=== PATIENT | female | born 1955 | race Caucasian/White ===

== ENCOUNTER 2019-06-22 20:21 | Emergency (ER) | payer OTHER ==
[2019-06-22 20:40] VITALS: BP 141/81; PULSE 76; TEMP 98.1; BMI 32.1
--- NOTE | 2019-06-22 22:50 | PDOC ---
History of Present Illness - General Chief Complaint: Pain Stated Complaint: RIGHT SIDE PAIN/HEAD PAIN Time Seen by Provider: 06/22/19 20:54 - History of Present Illness Initial Comments: 06/22/19 22:49 64-year-old female with a past medical history of coronary artery disease DVT hypertension on Eliquis presents for evaluation of right-sided rib pain. She states about 6 days ago she went to lift a TV felt the sudden onset of right- sided pain and has been in pain ever since. Past History - Past Medical History Allergies/Adverse Reactions: Allergies Allergy/AdvReac Type Severity Reaction Status Date / Time Penicillins Allergy Verified 06/22/19 20:27 Cardiac Disorders: Yes (Afib) COPD: No CHF: Yes GI Disorders: Yes (GERD, IBS,) Other medical history: Spinal stenosis, degenerative disc dx, - Surgical History GI Surgery: Yes (Hernia Repair, A/P,Gastric bypass,cholecystectomy) - Psycho Social/Smoking Cessation Hx Smoking History: Former smoker Have you smoked in the past 12 months: No If you are a former smoker, when did you quit?: 2007 Information on smoking cessation initiated: No Hx Alcohol Use: Yes ("social") Drug/Substance Use Hx: No Review of Systems - Review of Systems Respiratory: Yes: See HPI *Physical Exam - Vital Signs Last Vital Signs Temp Pulse Resp BP Pulse Ox 98.1 F 76 20 141/81 98 06/22/19 20:28 06/22/19 20:28 06/22/19 20:28 06/22/19 20:28 06/22/19 20:28 - Physical Exam Comments: 06/22/19 22:49 GENERAL: The patient is awake, alert, and fully oriented, in no acute distress. HEAD: Normal with no signs of trauma. EYES: sclera anicteric, conjunctiva clear. ENT: Ears normal NECK: Normal range of motion LUNGS: No wheezes rhonchi or rales decreased breath sounds at the right base. HEART: S1 and S2 without murmur, rub or gallop. ABDOMEN: Soft, nontender, normoactive bowel sounds. No guarding, no rebound. No masses. EXTREMITIES: Normal range of motion, no edema. No clubbing or cyanosis. No cords, erythema, or tenderness. NEUROLOGICAL: Cranial nerves II through XII grossly intact. Normal speech, normal gait. PSYCH: Normal mood, normal affect. SKIN: Warm, Dry, normal turgor, no rashes or lesions noted. ED Treatment Course - RADIOLOGY Radiology Studies Ordered: Category Date Time Status CHEST CT WITHOUT CONTRAST [CT] Stat CT Scan 06/22/19 21:19 Taken CHEST - PA [RAD] Stat Radiology 06/22/19 20:54 Taken RIBS RIGHT SIDE [RAD] Stat Radiology 06/22/19 20:54 Taken - Medications Given in the ED: ED Medications Discontinued Medications Generic Name Dose Route Start Last Admin Trade Name Freq PRN Reason Stop Dose Admin Oxycodone/Acetaminophen 2 combo 06/22/19 21:21 06/22/19 21:35 Percocet 5/325 - PO 06/22/19 21:22 2 combo ONCE ONE Administration Medical Decision Making - Medical Decision Making 06/22/19 22:50 There are rib fractures at ribs 9 and 10 on the right and a pleural effusion as well. No pneumothorax CAT scan was ordered to evaluate for hemothorax 06/22/19 22:50 This patient will be signed out to the main emergency room at this point Discharge - Discharge Information Problems reviewed: Yes Clinical Impression/Diagnosis: Rib fractures - Follow up/Referral Referrals: ON STAFF,NOT [Primary Care Provider] - - Patient Discharge Instructions - Post Discharge Activity
--- NOTE | 2019-06-22 23:49 | PDOC ---
*Physical Exam - Vital Signs Last Vital Signs Temp Pulse Resp BP Pulse Ox 98.1 F 76 20 141/81 98 06/22/19 20:28 06/22/19 20:28 06/22/19 20:28 06/22/19 20:28 06/22/19 20:28 - Physical Exam Comments: 06/22/19 23:41 The patient was examined by [XANDER Membreno] under my direct supervision. I personally evaluated the patient. I concur with the above findings and the plan of care. Patient is a 64-year-old female with history of DVT on Eliquis who presents with severe pleuritic right-sided rib cage pain for the past 5 days. Patient's chest and rib cage series x-rays revealed minimally displaced fractures of ninth and 10th ribs with a small right pleural effusion. CT revealed presence of small hemithorax. Patient is hemodynamically stable. Given the findings and presence of anticoagulation, patient has been advised of the need for admission and observation. Due to familial circumstances, she is unable to be admitted at this time. I have discussed with the patient and her friend in detail the risk associated with continued bleeding, increased hemathorax. Superimposed infection, respiratory compromise and even . They have expressed understanding. Patient will sign AGAINST MEDICAL ADVICE and will return in 12 hours for a repeat evaluation. ED Treatment Course - Medications Given in the ED: ED Medications Discontinued Medications Generic Name Dose Route Start Last Admin Trade Name Freq PRN Reason Stop Dose Admin Oxycodone/Acetaminophen 2 combo 06/22/19 21:21 06/22/19 21:35 Percocet 5/325 - PO 06/22/19 21:22 2 combo ONCE ONE Administration Discharge - Discharge Information Problems reviewed: Yes Clinical Impression/Diagnosis: Hemothorax Rib fractures Qualifiers: Encounter type: initial encounter Rib fracture type: multiple ribs Fracture type: closed Laterality: right Qualified Code(s): S22.41XA - Multiple fractures of ribs, right side, initial encounter for closed fracture Condition: Fair Disposition: AGAINST MEDICAL ADVICE - Admission No - Follow up/Referral Referrals: ON STAFF,NOT [Primary Care Provider] - Maurice Murillo MD [Staff Physician] - - Patient Discharge Instructions Patient Printed Discharge Instructions: DI for Rib Fracture Additional Instructions: Your CAT scan shows rib fractures and presence of blood in the thoracic cavity. You are signing AGAINST MEDICAL ADVICE. You are at risk for continuous bleeding, lung collapse, respiratory distress and even . Do not take Eliquis until reevaluated. Return to the ER for repeat chest x-ray so we can evaluate whether or not the presence of blood has increased. Return immediately for any worsening symptoms. - Post Discharge Activity
== END 2019-06-22 23:53 | disposition left against medical advice (07) ==
LOC: JER 20:21
DX: S22.41XA Multiple fractures of ribs, right side, initial encounter for closed fracture (principal); R07.81 Pleurodynia; S27.9XXA Injury of unspecified intrathoracic organ, initial encounter; X58.XXXA Exposure to other specified factors, initial encounter; Y93.9 Activity, unspecified; Y92.89 Other specified places as the place of occurrence of the external cause; I82.409 Acute embolism and thrombosis of unspecified deep veins of unspecified lower extremity; Z87.891 Personal history of nicotine dependence; Z98.84 Bariatric surgery status; K21.9 Gastro-esophageal reflux disease without esophagitis; K58.9 Irritable bowel syndrome, unspecified; M51.9 Unspecified thoracic, thoracolumbar and lumbosacral intervertebral disc disorder; I50.9 Heart failure, unspecified; M48.00 Spinal stenosis, site unspecified; Z88.0 Allergy status to penicillin
CPT/HCPCS: 71045-TC-FY; 71101-TC-RT-FY; 71250-TC; 99282-25

== ENCOUNTER 2019-06-23 08:15 | Inpatient (IN) | payer OTHER ==
[2019-06-23 08:23] VITALS: TEMP 98.5; BMI 32.1
--- NOTE | 2019-06-23 08:32 | PDOC ---
History of Present Illness - General Chief Complaint: Shortness of Breath Stated Complaint: SOB/FOLLOW UP X-RAY - History of Present Illness Initial Comments: 06/23/19 08:35 64 year old woman with a history of HTN and DVT on eliquis who was seen in the ER 1 day ago and found to have minimally displaced fx of R 9th and 10th ribs w/ a small hemothorax. The patient left AMA at the time and now presents because she was told to return to the ED. She denies worsening of SOB, denies chest pain , denies lightheadedness, denies abdominal pain. She reports she did NOT take her eliquis since she was discharged. In regards to traumatic history the patient states she fell 2 months ago and had head pain and was lifting a tv 1 week ago when she had the rib pain. She also complains of a bump on the back of her head that has recently been hurting her. ROS GENERAL/CONSTITUTIONAL: No fever or chills. No weakness. CARDIOVASCULAR: No chest pain or shortness of breath RESPIRATORY: No cough, wheezing, or hemoptysis. GASTROINTESTINAL: No nausea, vomiting, diarrhea or constipation. GENITOURINARY: No dysuria, frequency, or change in urination. MUSCULOSKELETAL: + rib pain, No joint or muscle swelling or pain. No neck or back pain. SKIN: No rash NEUROLOGIC: No headache, vertigo, loss of consciousness, or change in strength/ sensation. ENDOCRINE: No increased thirst. No abnormal weight change HEMATOLOGIC/LYMPHATIC: No anemia, easy bleeding, + history of blood clots. ALLERGIC/IMMUNOLOGIC: No hives or skin allergy. PE GENERAL: Awake, alert, and fully oriented, in no acute distress HEAD: small EYES: EOMI, sclera anicteric, conjunctiva clear ENT: oropharynx clear without exudates. Moist mucosa NECK: Normal ROM, supple LUNGS: No distress, speaks full sentences, clear to auscultration but with diminished breath sounds at the R base HEART: Regular rate and rhythm, normal S1 and S2, no murmurs, rubs or gallops, peripheral pulses normal and equal bilaterally. ABDOMEN: Soft, nontender, normoactive bowel sounds. No guarding, no rebound. No masses EXTREMITIES : Normal inspection, Normal range of motion, no edema. No clubbing or cyanosis. NEUROLOGICAL: Cranial nerves II through XII grossly intact. Normal speech, normal gait, no focal sensorimotor deficits SKIN: Warm, Dry, normal turgor, no rashes or lesions noted MDM DDX including but not limited to: expanding hemothorax r/o ptx r/o worsening displacement of fx ED Course: cardiac and coag workup w/ cxr imaging to start labs largely within normal CXR with improvement of hemothorax plan for admission to monitor resolution and for pain control Case discussed with resident Dr. Bergman pt admitted Guerita Davis, PGY2 Emergency Medicine Past History - Past Medical History Allergies/Adverse Reactions: Allergies Allergy/AdvReac Type Severity Reaction Status Date / Time Penicillins Allergy Verified 06/22/19 20:27 Home Medications: Ambulatory Orders Alendronate Sodium [Fosamax] 1 tab PO WEEKLY 06/23/19 Apixaban [Eliquis] 5 mg PO BID 06/23/19 Dicyclomine HCl 10 mg PO BID 06/23/19 Furosemide 20 mg PO DAILY 06/23/19 Gabapentin 300 mg PO Q8H 06/23/19 Lubiprostone [Amitiza] 24 mg PO BID 06/23/19 Metoprolol Tartrate 25 mg PO BID 06/23/19 Oxycodone HCl/Acetaminophen [Percocet 10-325 mg Tablet] 1 each PO QID PRN Pantoprazole Sodium 40 mg PO DAILY 06/23/19 Potassium Chloride 10 meq PO DAILY 06/23/19 Promethazine HCl 25 mg PO BID PRN 06/23/19 Solifenacin Succinate [Vesicare -] 5 mg PO DAILY 06/23/19 Zolpidem Tartrate 10 mg PO HS 06/23/19 Zolpidem Tartrate 10 mg PO HS PRN 06/23/19 Cardiac Disorders: Yes (Afib) COPD: No CHF: Yes GI Disorders: Yes (GERD, IBS,) - Surgical History GI Surgery: Yes (Hernia Repair, A/P,Gastric bypass,cholecystectomy) - Immunization History Immunization Up to Date: No - Psycho Social/Smoking Cessation Hx Smoking History: Never smoked Have you smoked in the past 12 months: No If you are a former smoker, when did you quit?: 2007 Information on smoking cessation initiated: No Hx Alcohol Use: No Drug/Substance Use Hx: No *Physical Exam - Vital Signs Last Vital Signs Temp Pulse Resp BP Pulse Ox 98.5 F 89 16 92/65 97 06/23/19 08:20 06/23/19 08:20 06/23/19 08:20 06/23/19 08:20 06/23/19 08:20 ED Treatment Course - LABORATORY CBC & Chemistry Diagram: 06/23/19 08:40 06/23/19 08:40 Discharge - Discharge Information Problems reviewed: Yes Clinical Impression/Diagnosis: Hemothorax Rib fractures Qualifiers: Encounter type: initial encounter Rib fracture type: multiple ribs Fracture type: closed Laterality: right Qualified Code(s): S22.41XA - Multiple fractures of ribs, right side, initial encounter for closed fracture Condition: Stable - Follow up/Referral - Patient Discharge Instructions - Post Discharge Activity
[2019-06-23] MEDS ORDERED: ACETAMINOPHEN 1000 MG/100 ML VIAL (NON FORMULARY) IVPB ONE (08:51)
[2019-06-23 09:14] LABS: BASO % 0.9 % (0-2.0); EOS % 2.3 % (0-4.5); HEMATOCRIT 40.2 % (32.4-45.2); HEMOGLOBIN 13.1 GM/dL (10.7-15.3); LYMPH % 27.2 % (8-40); MCH 29.1 pg (25.7-33.7); MCHC 32.7 g/dl (32.0-36.0); MEAN CELL VOLUME 89.1 fl (80-96); MEAN PLT VOLUME 9.3 fl (7.5-11.1); MONO % 7.7 % (3.8-10.2); NEUT % 61.9 % (42.8-82.8); PLATELET COUNT 344 K/MM3 (134-434); RBC 4.51 M/mm3 (3.60-5.2); RDW 15.7 % (11.6-15.6); WHITE BLOOD COUNT 4.5 K/mm3 (4.0-10.0)
[2019-06-23 09:24] LABS: INR 0.99 (0.83-1.09); PROTHROMBIN TIME (PATIENT) 11.7 SEC (9.7-13.0)
[2019-06-23 09:27] LABS: ACTIVATED PTT 31.9 SECONDS (25.2-36.5)
[2019-06-23] MEDS ORDERED: ACETAMINOPHEN INJECTION 100 ML IVPB ONE (09:27)
[2019-06-23 10:06] LABS: ALBUMIN 3.6 g/dl (3.4-5.0); ALK PHOS 186 U/L (45-117); ANION GAP 6 MMOL/L (8-16); BILIRUBIN,TOTAL 0.4 mg/dL (0.2-1); BLOOD UREA NITROGEN 11.7 mg/dL (7-18); CHLORIDE 103 mmol/L (98-107); CO2 28 mmol/L (21-32); CREATININE 0.8 mg/dL (0.55-1.3); GLUCOSE,RANDOM 55 mg/dL (74-106); N-TERMINAL BNP 478.2 pg/ml (5-125); POTASSIUM 4.1 mmol/L (3.5-5.1); SGOT/AST 94 U/L (15-37); SGPT/ALT 54 U/L (13-61); SODIUM 137 mmol/L (136-145); TOT PROT 7.2 g/dl (6.4-8.2)
[2019-06-23 10:25] LABS: EPI CELLS 0.1 /HPF (0-5/HPF); HYALINE CASTS 0 /lpf (0-8); URINE APPEARANCE CLEAR; URINE BACTERIA 0.8 /hpf (NEGATIVE); URINE BILIRUBIN NEGATIVE (NEGATIVE); URINE COLOR YELLOW; URINE GLUCOSE (UA) NEGATIVE (NEGATIVE); URINE KETONE NEGATIVE (NEGATIVE); URINE LEUK ESTERASE TRACE (NEGATIVE); URINE NITRITE NEGATIVE (NEGATIVE); URINE PROTEIN NEGATIVE (NEGATIVE); URINE RBC 1 /hpf (0-4); URINE UROBILINOGEN 0.2 mg/dL (0.2-1.0); URINE WBC 0 /hpf (0-5)
[2019-06-23] MEDS ORDERED: oxyCODONE HCL 5 MG TABLET PO PRN (12:53)
[2019-06-23] MEDS ORDERED: ACETAMINOPHEN 325 MG TABLET (FP) PO PRN (12:53)
--- NOTE | 2019-06-23 14:09 | PDOC ---
Documentation entered by Presley Levine SCRIBE, acting as scribe for Chauncey Garcia MD. Chauncey Garcia MD: This documentation has been prepared by the Abner dial Nirvannie, SCRIBE, under my direction and personally reviewed by me in its entirety. I confirm that the documentation accurately reflects all work, treatment, procedures, and medical decision making performed by me. Attending Attestation - Resident Resident Name: Guerita Davis - ED Attending Attestation I have performed the following: I have examined & evaluated the patient, The case was reviewed & discussed with the resident, I agree w/resident's findings & plan, Exceptions are as noted - HPI HPI: 06/23/19 09:51 The patient is a 64 year old female, with a significant past medical history of HTN, DVT, recent diagnosis of hemothorax and rib fracture (06/22 in the ER) who presents to the emergency department for admission. As per patient, she was evaluated in the ED for rib pain and diagnosed minimally displaced fracture of right 9th and 10th ribs with a small hemothorax. Patient was advised to be admitted but, refused and signed out AMA to take care of [employer] business. She has not taken her eliquis today or yesterday. She denies recent chest pain or shortness of breath. She denies recent fevers, chills, headache or dizziness. She denies recent nausea, vomiting, diarrhea or constipation. She denies recent dysuria, frequency, urgency or hematuria. Allergies: Penicillins. - Physicial Exam PE: 06/23/19 13:58 agree with resident exam - Medical Decision Making 06/23/19 13:59 64yo F presents to the ED for admission for observation after diagnosis of multiple rib fractures with hemothorax Vitals wnl Exam with mildly dimininshed BS at the R lung base CXR stable compared to yesterday Pt has been holding eliquis since yesterday Pt admitted for observation
--- NOTE | 2019-06-23 14:16 | HP ---
CHIEF COMPLAINT: R rib pain PCP: From [place] - Dr. Paulino HISTORY OF PRESENT ILLNESS: 64F w/ pmhx of CHF, Afib, DVT (2013, on Eliquis), spinal stenosis, IBS, degenerative disc disease, Mcgowan's esophagus presents in the ED for R rib pain. States she was here yesterday for the same pain, found to have 9th and 10th rib fractures found on CXR, but left AMA from the ED yesterday to take care of her pets. Today she presents for re-evaluation as she was advised to return the ED. Reports having this pain for about 1 week after carrying and rearranging televisions in her mother's house. Since Thursday, her pain has been getting progressively worse - exacerbated by deep inspirations and minor positional changes. Due to her chronic back pain 2/2 spinal stenosis, she currently has a pain pump and takes Oxycodone 10 QID PRN. Denies any trauma/ injury to the area. Denies fofana/d, chest pain, abd pain, urinary/bowel symptoms. ER course was notable for: (1) VS and labs stable (2) IV Tylenol and Percocet given in ED (3) CXR showed R pleural effusion; no interval change since yesterday. CT chest showed acute mildly displaced fx involving R 9th rib along posterior axillary line; small amt R pleural fluid; probably represents hemothorax associated wth fx Recent Travel: Came from [place] 1 month ago PAST MEDICAL HISTORY: As per HPI PAST SURGICAL HISTORY: hernia repair gastric bypass (2003) cholecystectomy appendectomy b/l knee replacement (L in 2009, R in 02/25) L hip replacement (2013) b/l breast implants dana garcia Social History: Smoking: Former smoker; stopped smoking 2007 since age 16, 1 PPD Alcohol: Socially drinks Drugs: Denies Lives at home independently at home in [place] Has 1 daughter Allergies Penicillins Allergy (Verified 06/22/19 20:27) HOME MEDICATIONS: Home Medications Medication Instructions Recorded Alendronate Sodium [Fosamax] 1 tab PO WEEKLY 06/23/19 Apixaban [Eliquis] 5 mg PO BID 06/23/19 Dicyclomine HCl 10 mg PO BID 06/23/19 Furosemide 20 mg PO DAILY 06/23/19 Gabapentin 300 mg PO Q8H 06/23/19 Lubiprostone [Amitiza] 24 mg PO BID 06/23/19 Metoprolol Tartrate 25 mg PO BID 06/23/19 Oxycodone HCl/Acetaminophen 1 each PO QID PRN 06/23/19 [Percocet 10-325 mg Tablet] Pantoprazole Sodium 40 mg PO DAILY 06/23/19 Potassium Chloride 10 meq PO DAILY 06/23/19 Promethazine HCl 25 mg PO BID PRN 06/23/19 Solifenacin Succinate [Vesicare -] 5 mg PO DAILY 06/23/19 Zolpidem Tartrate 10 mg PO HS 06/23/19 Zolpidem Tartrate 10 mg PO HS PRN 06/23/19 REVIEW OF SYSTEMS CONSTITUTIONAL: Absent: fever, chills, diaphoresis, generalized weakness, malaise, loss of appetite, weight change HEENT: Absent: rhinorrhea, nasal congestion, throat pain, throat swelling, difficulty swallowing, mouth swelling, ear pain, eye pain, visual changes CARDIOVASCULAR: Absent: chest pain, syncope, palpitations, irregular heart rate, lightheadedness , peripheral edema RESPIRATORY: R side rib pain with deep inspiration Absent: cough, shortness of breath, dyspnea with exertion, orthopnea, wheezing, stridor, hemoptysis GASTROINTESTINAL: Absent: abdominal pain, abdominal distension, nausea, vomiting, diarrhea, constipation, melena, hematochezia GENITOURINARY: Absent: dysuria, frequency, urgency, hesitancy, hematuria, flank pain, genital pain MUSCULOSKELETAL: Pain on lateral R chest wall Absent: myalgia, arthralgia, joint swelling, back pain, neck pain SKIN: Absent: rash, itching, pallor HEMATOLOGIC/IMMUNOLOGIC: Absent: easy bleeding, easy bruising, lymphadenopathy, frequent infections ENDOCRINE: Absent: unexplained weight gain, unexplained weight loss, heat intolerance, cold intolerance NEUROLOGIC: Absent: headache, focal weakness or paresthesias, dizziness, unsteady gait, seizure, mental status changes, bladder or bowel incontinence PSYCHIATRIC: Absent: anxiety, depression, suicidal or homicidal ideation, hallucinations. PHYSICAL EXAMINATION Vital Signs - 24 hr 06/23/19 06/23/19 08:20 11:24 Temperature 98.5 F Pulse Rate 89 Respiratory 16 Rate Blood Pressure 92/65 O2 Sat by Pulse 97 98 Oximetry (%) GENERAL: Pleasant, well-appearing female. NAD. AAOx3. HEENT: AT/NC. EOMI. MMM. Face symmetrical. NECK: Normal range of motion, supple without lymphadenopathy, JVD, or masses. LUNGS: CTA B/L. Limited chest rise due to pain. CHEST: No visible chest deformities/contusions/erythema seen. HEART: Regular rate and rhythm, normal S1 and S2 without murmur, rub or gallop. ABDOMEN: Soft, nontender, not distended, normoactive bowel sounds, no guarding, no rebound, no masses. No hepatomegaly or splenomegaly. MUSCULOSKELETAL: Normal range of motion at all joints. No bony deformities or tenderness. No CVA tenderness. UPPER EXTREMITIES: 2+ pulses, warm, well-perfused. No cyanosis. No clubbing. No peripheral edema. LOWER EXTREMITIES: 2+ pulses, warm, well-perfused. No calf tenderness. No peripheral edema. NEUROLOGICAL: Cranial nerves II-XII intact. Normal speech. Normal gait. PSYCHIATRIC: Cooperative. Good eye contact. Appropriate mood and affect. SKIN: Warm, dry, normal turgor, no rashes or lesions noted, normal capillary refill. IMAGING: * CT chest (06/23/19): Nondisplaced fx again seen in posterolateral arch of R 9th rib. Small R pleural effusion w/ atelectasis in dependent portion of RLL w/ o gross interval change. * CT chest (06/22/19): Acute mildly displaced R 9th rib fx alone posterior axillary line. Small amount of R pleural fluid presumably representing hemothorax. Mild R middle lobe discoid atelectasis. Probably mild cardiomegaly. Very small amount of pericardial fluid probably physiologic in volume. * CXR (06/23/19): Since prior sudy of 06/22/19, R fluid has diminished slightly. ASSESSMENT/PLAN: 64F w/ pmhx of CHF, Afib, DVT (2013, on Eliquis), spinal stenosis, IBS, degenerative disc disease, Mcgowan's esophagus presents in the ED for R rib pain. R pleural effusion 9th/10th Rib fracture Afib DVT CHF Spinal stenosis Degenerative disc disease Osteoporosis Plan: -Pt stable, VS wnl, labs unremarkable, pain is controlled. EKG NSR. -CXR and CT chest noted above; rib fx may be due to osteoporosis -Pain control per home regimen (Pt currently has a Fentanylpump and takes Percocet) -Pulm consulted for further evaluation of R pleural fluid; ? hemothorax -IS -Cont home meds: Eliquis, Lopressor, Lasix -DVT Ppx: Cont home Eliquis Dispo -DC pending pulm eval -Follow up with PCP, Pain mgmt doctor, and concession supervisor. Will need echo as outpatient due to incidental finding of pericardial fluid. # Visit type - Emergency Visit Emergency Visit: Yes ED Registration Date: 06/23/19 Care time: The patient presented to the Emergency Department on the above date and was hospitalized for further evaluation of their emergent condition. - New Patient This patient is new to me today: Yes Date on this admission: 06/23/19 - Critical Care Critical Care patient: No ATTENDING PHYSICIAN STATEMENT I saw and evaluated the patient. I reviewed the resident's note and discussed the case with the resident. I agree with the resident's findings and plan as documented. SUBJECTIVE: OBJECTIVE: ASSESSMENT AND PLAN:
--- NOTE | 2019-06-23 14:56 | PN ---
Teaching Attending Note Name of Resident: Flaquita Bergman ATTENDING PHYSICIAN STATEMENT I saw and evaluated the patient. I reviewed the resident's note and discussed the case with the resident. I agree with the resident's findings and plan as documented. SUBJECTIVE: CC: R sided rib pain HPI: 64 y/o lady with h/o DVT in 2013, CHF, A fib on eliquis , b/l TKR, spinal stenosis ,osteoporosis, DJD, BArrette's esophagus and other medical problems who presented with R sided rib pain. She denies any fall, or trauma, she was moving heavy TVs around last week when she all of sudden developed pain in R sided chest but continued to work. inpast week , pain has became severe to a point that she had to stay in bed. she denies fever , or chills. she has no cough . has difficulty taking deep breath due to pain. denies h/o cancer. She has spinal stenosis and isn on oxy 10 mg QID and fentanyl pump. she goes to pain management in [place] where she normally resides. She came to Er yesterday and was diagnosed with R 9th Fx with R pleural effusion , but she left AMA . She presented today to complete eval OBJECTIVE: NAD. Awake, alert, pleasant and cooperative HEENT: MMM, no facail droop. EOMI. round equal pupils, reactive to light . CV: RRR. Lungs: CTAB, decreased breath sounds at R base Ext: No edema or erythema. varicose veins on both legs Abd: soft, NT, ND , NL BS. MS: TTP over lateral R sided lower ribs Neuro :EOMi, round equal pupils, reactive to light. strength : 5/5 in upper and lower extremities proximally and distally. sensatio to light touch NL. ASSESSMENT AND PLAN: 64 y/o lady with h/o DVT in 2013, CHF, A fib on eliquis , b/l TKR, spinal stenosis ,osteoporosis, DJD, BArrette's esophagus and other medical problems who presented with R sided rib pain. she was diagnosed with R sided 9,10th rib Fx. 1- R 9 th rib Fx with pleural effusion. No resp compromise . pain is controlled. - pain control with her home regimen only - pulm c/s fro pleural effusion . likely will monitor - cause of rib Fx with heavy lifting might be the osteoporosis. 2- H/o Chronic low back pain . - has a fentanyl pump in lower back - cont her home oxy ( will confirm dose with her pharamcy ) 3- H/o chronic problems : A fib , CHF: - cont BB and lasix and eliqis Dispo : possible dc home after Pulm eval needs to follow up withher pain management after dc , if she can't make it on time to refill pump, then she can be referred to Dr. Kaur Needs echo as out pt , to evaluate pericardial fluid and Pulm artery pressure ( last CT yesterday was reviewed).
[2019-06-23 15:13] VITALS: BP 128/68; PULSE 78
[2019-06-23] MEDS ORDERED: ZOLPIDEM TARTRATE 5 MG TABLET PO PRN (16:01)
[2019-06-23] MEDS ORDERED: PROMETHAZINE HCL 25 MG TABLET PO PRN (16:01)
--- NOTE | 2019-06-23 16:05 | CON.PULM ---
Consult Consult Specialty:: PULMONARY Referred by:: Dr Ruelas Reason for Consultation:: pleural effusion - History of Present Illness Chief Complaint: rib pain History of Present Illness: 64yo female with h/o spinal stenosis, CHF, atrial fibrillation, h/o DVT, IBS who was admitted with right sided rib pain that started after carrying heavy televisions. Reports shortness of breath with deep inspirations. No fevers, chills or sweats. CT chest showing small right sided effusion along with the fractured 9th and 10th rib. She is on eliquis for her afib. - History Source History Provided By: Patient, Medical Record Limitations to Obtaining History: No Limitations - Alcohol/Substance Use Hx Alcohol Use: No - Smoking History Smoking history: Never smoked Have you smoked in the past 12 months: No If you are a former smoker, when did you quit?: 2007 Home Medications - Allergies Allergies/Adverse Reactions: Allergies Allergy/AdvReac Type Severity Reaction Status Date / Time Penicillins Allergy Verified 06/22/19 20:27 - Home Medications Home Medications: Ambulatory Orders Alendronate Sodium [Fosamax] 1 tab PO WEEKLY 06/23/19 Apixaban [Eliquis] 5 mg PO BID 06/23/19 Dicyclomine HCl 10 mg PO BID 06/23/19 Furosemide 20 mg PO DAILY 06/23/19 Gabapentin 300 mg PO Q8H 06/23/19 Lubiprostone [Amitiza] 24 mg PO BID 06/23/19 Metoprolol Tartrate 25 mg PO BID 06/23/19 Oxycodone HCl/Acetaminophen [Percocet 10-325 mg Tablet] 1 each PO QID PRN Pantoprazole Sodium 40 mg PO DAILY 06/23/19 Potassium Chloride 10 meq PO DAILY 06/23/19 Promethazine HCl 25 mg PO BID PRN 06/23/19 Solifenacin Succinate [Vesicare -] 5 mg PO DAILY 06/23/19 Zolpidem Tartrate 10 mg PO HS 06/23/19 Zolpidem Tartrate 10 mg PO HS PRN 06/23/19 Review of Systems - Review of Systems Constitutional: denies: Chills, Fever, Weakness Eyes: denies: Recent Change in Vision HENT: denies: Nasal Congestion, Throat Pain Neck: denies: Stiffness, Tenderness Cardiovascular: reports: Chest Pain, Shortness of Breath. denies: Palpitations Respiratory: denies: Cough, Hemoptysis, Wheezing Gastrointestinal: denies: Abdominal Pain, Nausea, Vomiting Genitourinary: denies: Dysuria, Hematuria Neurological: denies: Dizziness, Headache Endocrine: denies: Unexplained Weight Loss Physical Exam Vital Sings: Vital Signs Temperature 98.5 F 06/23/19 08:20 Pulse Rate 78 06/23/19 14:00 Respiratory Rate 18 06/23/19 14:00 Blood Pressure 128/68 06/23/19 14:00 O2 Sat by Pulse Oximetry (%) 98 06/23/19 14:00 Constitutional: Yes: No Distress, Calm Eyes: Yes: Conjunctiva Clear, EOM Intact HENT: Yes: Atraumatic, Normocephalic Neck: Yes: Supple, Trachea Midline Cardiovascular: Yes: Regular Rate and Rhythm Respiratory: Yes: Diminished (decreased breath sounds at the bases) ...Clubbing: No Gastrointestinal: Yes: Normal Bowel Sounds, Soft. No: Tenderness Edema: No Neurological: Yes: Alert, Oriented Labs: CBC, BMP 06/23/19 08:40 06/23/19 08:40 Imaging - Results Cat Scan: Report Reviewed, Image Reviewed (small right pleural effusion) Problem List - Problems (1) Rib fractures Code(s): S22.39XA - FRACTURE OF ONE RIB, UNSP SIDE, INIT FOR CLOS FX Qualifiers: Encounter type: initial encounter Rib fracture type: multiple ribs Fracture type: closed Laterality: right Qualified Code(s): S22.41XA - Multiple fractures of ribs, right side, initial encounter for closed fracture Assessment/Plan Right Rib Fractures Small Right Pleural Effusion Atrial Fibrillation CHF h/o DVT Spinal Stenosis - pain control - would give her a incentive spirometer to take home - attenuation of fluid not suggestive of hemothorax, effusion likely from atelectasis/splinting - can resume anticoagulation - can d/c home from pulmonary standpoint, instructed her to come back to the hospital if pain or shortness of breath increases - will need outpt CXR in 6-8 weeks to ensure resolution of CXR findings Thank you for this consult Erik Chavez MD
[2019-06-23] MEDS ORDERED: SOLIFENACIN SUCCINATE 5 MG TAB PO SCH (16:15)
[2019-06-23] MEDS ORDERED: GABAPENTIN 300 MG CAPSULE (FP) PO SCH (16:15)
[2019-06-23] MEDS ORDERED: PANTOPRAZOLE 40 MG TABLET (FP) PO SCH (16:15)
[2019-06-23] MEDS ORDERED: FUROSEMIDE 20 MG TABLET (FP) PO SCH (16:15)
--- NOTE | 2019-06-23 17:41 | DS ---
Physical Exam: SUBJECTIVE: Patient seen and examined at bedside. No acute events. Pt pain controlled. OBJECTIVE: Vital Signs Period Temp Pulse Resp BP Sys/Malone Pulse Ox Last 24 Hr 98.5 F 77-89 16-18 92-128/65-68 97-98 PHYSICAL EXAM GENERAL: Pleasant, well-appearing female. NAD. AAOx3. HEENT: AT/NC. EOMI. MMM. Face symmetrical. Wears glasses. NECK: Normal range of motion, supple without lymphadenopathy, JVD, or masses. LUNGS: CTA B/L. Limited chest rise due to pain. CHEST: No visible chest deformities/contusions/erythema seen. HEART: Regular rate and rhythm, normal S1 and S2 without murmur, rub or gallop. ABDOMEN: Soft, nontender, not distended, normoactive bowel sounds, no guarding, no rebound, no masses. No hepatomegaly or splenomegaly. MUSCULOSKELETAL: Normal range of motion at all joints. No bony deformities or tenderness. No CVA tenderness. UPPER EXTREMITIES: 2+ pulses, warm, well-perfused. No cyanosis. No clubbing. No peripheral edema. LOWER EXTREMITIES: 2+ pulses, warm, well-perfused. No calf tenderness. No peripheral edema. NEUROLOGICAL: Cranial nerves II-XII intact. Normal speech. PSYCHIATRIC: Cooperative. Good eye contact. Appropriate mood and affect. SKIN: Warm, dry, normal turgor, no rashes or lesions noted, normal capillary refill. LABS Laboratory Results - last 24 hr 06/23/19 06/23/19 06/23/19 08:40 08:40 08:40 WBC 4.5 RBC 4.51 Hgb 13.1 Hct 40.2 MCV 89.1 MCH 29.1 MCHC 32.7 RDW 15.7 H Plt Count 344 MPV 9.3 Absolute Neuts (auto) 2.8 Neutrophils % 61.9 Lymphocytes % 27.2 Monocytes % 7.7 Eosinophils % 2.3 Basophils % 0.9 Nucleated RBC % 0 PT with INR 11.70 INR 0.99 PTT (Actin FS) 31.9 Sodium 137 Potassium 4.1 Chloride 103 Carbon Dioxide 28 Anion Gap 6 L BUN 11.7 Creatinine 0.8 Est GFR (CKD-EPI)AfAm 89.04 Est GFR (CKD-EPI)NonAf 76.83 Random Glucose 55 L Calcium 9.0 Total Bilirubin 0.4 AST 94 H ALT 54 Alkaline Phosphatase 186 H Troponin I < 0.02 B-Natriuretic Peptide 478.2 H Total Protein 7.2 Albumin 3.6 Urine Color Urine Appearance Urine pH Ur Specific [place] Urine Protein Urine Glucose (UA) Urine Ketones Urine Blood Urine Nitrite Urine Bilirubin Urine Urobilinogen Ur Leukocyte Esterase Urine WBC (Auto) Urine RBC (Auto) Urine Casts (Auto) U Epithel Cells (Auto) Urine Bacteria (Auto) 06/23/19 06/23/19 08:40 10:10 WBC RBC Hgb Hct MCV MCH MCHC RDW Plt Count MPV Absolute Neuts (auto) Neutrophils % Lymphocytes % Monocytes % Eosinophils % Basophils % Nucleated RBC % PT with INR INR PTT (Actin FS) Sodium Potassium Chloride Carbon Dioxide Anion Gap BUN Creatinine Est GFR (CKD-EPI)AfAm Est GFR (CKD-EPI)NonAf Random Glucose Calcium Total Bilirubin AST ALT Alkaline Phosphatase Troponin I Cancelled B-Natriuretic Peptide Cancelled Total Protein Albumin Urine Color Yellow Urine Appearance Clear Urine pH 6.0 Ur Specific [place] 1.004 L Urine Protein Negative Urine Glucose (UA) Negative Urine Ketones Negative Urine Blood Negative Urine Nitrite Negative Urine Bilirubin Negative Urine Urobilinogen 0.2 Ur Leukocyte Esterase Trace Urine WBC (Auto) 0 Urine RBC (Auto) 1 Urine Casts (Auto) 0 U Epithel Cells (Auto) 0.1 Urine Bacteria (Auto) 0.8 HOSPITAL COURSE: Date of Admission:06/23/19 IMAGING: * CT chest (06/23/19): Nondisplaced fx again seen in posterolateral arch of R 9th rib. Small R pleural effusion w/ atelectasis in dependent portion of RLL w/ o gross interval change. * CT chest (06/22/19): Acute mildly displaced R 9th rib fx alone posterior axillary line. Small amount of R pleural fluid presumably representing hemothorax. Mild R middle lobe discoid atelectasis. Probably mild cardiomegaly. Very small amount of pericardial fluid probably physiologic in volume. * CXR (06/23/19): Since prior sudy of 06/22/19, R fluid has diminished slightly. 64F w/ pmhx of CHF, Afib, DVT (2013, on Eliquis), spinal stenosis, IBS, degenerative disc disease, Mcgowan's esophagus presents in the ED for R rib pain x1 week. She was seen in the ED yesterday, CXR and CT chest done at that time showed fracture of 9th and 10th rib as well as evid of R pleural effusion suggestive of hemothorax. She subsequently signed out AMA from the ED in order to take care of tasks at home and presented again the next day for further evaluation. Upon this visit, repeat CXR and CT chest done showed R pleural effusion w/o gross interval change. There was also an incidental finding of pericardial fluid. In the ED, vitals were stable, labs were unremarkable. She was given IV Tylenol and PO Oxycodone for pain. She was evaluated by pulm; R pleural effusion likely due to atelectasis/splinting as opposed to hemothorax. Pt advised conservative management with recommendation to use an incentive spirometer, no heavy lifting, and outpatient follow up with repeat chest x-ray in 6-8 weeks. Her pain symptoms were controlled and she was discharged home with further recommendation to follow up with her PCP, pain mgmt doctor, and pulm as an outpatient. Additionally, she was advised to have an echo done as an outpatient for further follow up of an incidental finding of pericardial fluid found on her CXR. Date of Discharge: 06/23/19 Minutes to complete discharge: 40 Discharge Summary Problems reviewed: Yes Reason For Visit: FRACTURE OF RIB,HEMOTHORAX Current Active Problems Hemothorax (Acute) Rib fractures (Acute) Condition: Stable - Instructions Diet, Activity, Other Instructions: You were seen in the ED for complaints of R rib pain. A CT scan of your chest and chest x ray was done that showed you have a rib fracture. You were also found to have small collection of fluid in your lungs likely due to your rib fracture. As a result, you were seen by the punchboard inserter (lung doctor). Your symptoms improved throughout your hospital stay. You are being discharged home. Medications Please continue taking your home medications as prescribed. Please use your incentive spirometer every hour. This will help expand your lungs and help resolve the fluid collection as well. Referrals -Please follow up with your PCP, Dr. Paulino within 1 week. You will need an echocardiogram (ultrasound of the heart) as an outpatient to evaluate for an incidental finding of fluid around your heart and your pulmonary artery pressure. -Please follow up with a punchboard inserter within 1 week. If you do not have one, you make an appointment with Dr. Chavez. You will need a repeat chest x-ray in 6-8 weeks to evaluate the small fluid collection in your lung. -Please follow up with your pain management doctor within 1 week. If you are unable to make your appointment, you may see Dr. Vidal. If you have worsening chest pain, shortness of breath/difficulty breathing, intolerable pain, persistent fever/chills or other associated symptoms, please proceed to your nearest emergency room immediately. Referrals: Jefferson LEE [Other] - 1 Week Vince Vidal MD [Staff Physician] - 1 Week Erik Chavez MD, MD [Staff Physician] - 1 Week Disposition: HOME - Home Medications Comprehensive Discharge Medication List: Ambulatory Orders Alendronate Sodium [Fosamax] 1 tab PO WEEKLY 06/23/19 Apixaban [Eliquis] 5 mg PO BID 06/23/19 Dicyclomine HCl 10 mg PO BID 06/23/19 Furosemide 20 mg PO DAILY 06/23/19 Gabapentin 300 mg PO Q8H 06/23/19 Lubiprostone [Amitiza] 24 mg PO BID 06/23/19 Metoprolol Tartrate 25 mg PO BID 06/23/19 Miscellaneous Medical Supply [Outpatient Order] 1 each ASDIR #1 misc Oxycodone HCl/Acetaminophen [Percocet 10-325 mg Tablet] 1 each PO QID PRN Pantoprazole Sodium 40 mg PO DAILY 06/23/19 Potassium Chloride 10 meq PO DAILY 06/23/19 Promethazine HCl 25 mg PO BID PRN 06/23/19 Solifenacin Succinate [Vesicare -] 5 mg PO DAILY 06/23/19 Zolpidem Tartrate 10 mg PO HS PRN 06/23/19 This patient is new to me today: No Emergency Visit: Yes ED Registration Date: 06/23/19 Care time: The patient presented to the Emergency Department on the above date and was hospitalized for further evaluation of their emergent condition. Critical Care patient: No - Discharge Referral Referred to [facility] Med [facility] No ATTENDING PHYSICIAN STATEMENT I saw and evaluated the patient. I reviewed the resident's note and discussed the case with the resident. I agree with the resident's findings and plan as documented. SUBJECTIVE: OBJECTIVE: ASSESSMENT AND PLAN:
[2019-06-23] MEDS ORDERED: APIXABAN 5 MG TABLET PO SCH (22:00)
[2019-06-23] MEDS ORDERED: METOPROLOL TARTRATE 25 MG TABLET (FP) PO SCH (22:00)
[2019-06-23] MEDS ORDERED: LUBIPROSTONE 24 MG PO SCH (22:00)
[2019-06-23] MEDS ORDERED: DICYCLOMINE HCL 10 MG CAPSULE PO SCH (22:00)
[2019-06-24] MEDS ORDERED: POTASSIUM CHLORIDE TABS 10 MEQ TABLET.ER (FP) PO SCH (10:00)
--- NOTE | 2019-06-24 13:54 | EKG ---
Test Reason : Blood Pressure : / mmHG Vent. Rate : 079 BPM Atrial Rate : 079 BPM P-R Int : 140 ms QRS Dur : 086 ms QT Int : 400 ms P-R-T Axes : 052 019 002 degrees QTc Int : 458 ms SINUS RHYTHM WITH PREMATURE VENTRICULAR COMPLEXES OR FUSION COMPLEXES POSSIBLE LEFT ATRIAL ENLARGEMENT INCOMPLETE RBBB Confirmed by BENEDICTO SINGH MD ([id number]) on 06/24/2019 1:53:57 PM Referred By: Confirmed By:BENEDICTO SINGH MD
== END 2019-06-23 18:03 | disposition home or self-care (01) | DRG 543 ==
LOC: JER 08:15 → JERBED 09:23 → OBSVTOIN 12:50
PROVIDERS: ADMIT Internal Medicine; ATTEND Internal Medicine
DX: M84.48XA Pathological fracture, other site, initial encounter for fracture (principal); J98.11 Atelectasis; J90 Pleural effusion, not elsewhere classified; I50.9 Heart failure, unspecified; I48.91 Unspecified atrial fibrillation; M48.00 Spinal stenosis, site unspecified
CPT/HCPCS: 36415; 70450-TC; 71045-TC-FY; 71250-TC; 80053; 81003; 83880; 84484; 85025; 85610; 85730; 87086; 93005; 93010; 99285-25; G0378; J0131

== ENCOUNTER 2019-07-27 18:19 | Emergency (ER) | payer OTHER ==
--- NOTE | 2019-07-27 18:28 | PDOC ---
Rapid Medical Evaluation Medical Evaluation: Allergies Allergy/AdvReac Type Severity Reaction Status Date / Time Penicillins Allergy Verified 06/22/19 20:27 07/27/19 18:28 I have performed a brief in-person evaluation of this patient. The patient presents with a chief complaint of: here for spinal stenosis and DJD , on percocet but ran out. Saw PMD 06/28 and given 28 tabs. Also saw Sr Lebron of pain and given "few tablets" but has since ran out, here for refill. No acute neuro sxs and ambulatory Pertinent physical exam findings:stable, NAD I have ordered the following:nothing The patient will proceed to the ED for further evaluation. ISTOP info: Patient Name: Mihaela Phan Date: 1955 Address: [address] [id number] Sex: Female Rx Written Rx Dispensed Drug Quantity Days Supply Prescriber Name 07/15/2019 07/16/2019 oxycodone hcl 10 mg tablet 28 7 Chace Harrington MD 07/12/2019 07/12/2019 alprazolam 0.5 mg tablet 60 30 Roberto Carlos Irvin MD 06/06/2019 07/06/2019 zolpidem tartrate 10 mg tablet 30 30 Roberto Carlos Irvin MD 07/01/2019 07/02/2019 oxycodone-acetaminophen 10-325 mg tab 60 30 Saw Lebron MD 06/29/2019 06/29/2019 oxycodone-acetaminophen 10-325 mg tab 10 3 Dolores Pulido MD 06/22/2019 06/24/2019 oxycodone hcl 5 mg tablet 10 2 Smooth Shanks 06/06/2019 06/07/2019 alprazolam 0.5 mg tablet 60 30 Roberto Carlos Irvin MD 06/06/2019 06/07/2019 zolpidem tartrate 10 mg tablet 30 30 Roberto Carlos Irvin MD * - Drugs marked with an asterisk are compound drugs. If the compound drug is made up of more than one controlled substan Discharge Disposition - Diagnosis Medication refill - Referrals - Patient Instructions - Post Discharge Activity
[2019-07-27 18:46] VITALS: BP 127/98; PULSE 71; TEMP 98.5; BMI 33.2
--- NOTE | 2019-07-27 22:11 | PDOC ---
History of Present Illness - General Chief Complaint: Back Pain Stated Complaint: BACK PAIN Time Seen by Provider: 07/27/19 18:32 - History of Present Illness Initial Comments: 07/27/19 22:08 64-year-old female with multiple comorbidities presents for exacerbation of lower back pain with left lower leg radicular symptoms x1 day without any precipitating traumatic event loss of bowel or bladder function saddle paresthesias or systemic symptoms Past History - Past Medical History Allergies/Adverse Reactions: Allergies Allergy/AdvReac Type Severity Reaction Status Date / Time Penicillins Allergy Verified 07/27/19 18:39 Home Medications: Ambulatory Orders Alendronate Sodium [Fosamax] 1 tab PO WEEKLY 06/23/19 Apixaban [Eliquis] 5 mg PO BID 06/23/19 Dicyclomine HCl 10 mg PO BID 06/23/19 Furosemide 20 mg PO DAILY 06/23/19 Gabapentin 300 mg PO Q8H 06/23/19 Lubiprostone [Amitiza] 24 mg PO BID 06/23/19 Metoprolol Tartrate 25 mg PO BID 06/23/19 Miscellaneous Medical Supply [Outpatient Order] 1 each MC ASDIR #1 misc Oxycodone HCl/Acetaminophen [Percocet 10-325 mg Tablet] 1 each PO QID PRN Pantoprazole Sodium 40 mg PO DAILY 06/23/19 Potassium Chloride 10 meq PO DAILY 06/23/19 Promethazine HCl 25 mg PO BID PRN 06/23/19 Solifenacin Succinate [Vesicare -] 5 mg PO DAILY 06/23/19 Zolpidem Tartrate 10 mg PO HS PRN 06/23/19 Cyclobenzaprine HCl [Flexeril 10 mg] 10 mg PO HS PRN #10 tablet 07/27/19 Methylprednisolone [Medrol Dose Nigel] 4 mg PO ASDIR #21 tablet 07/27/19 Cardiac Disorders: Yes (Afib) COPD: No CHF: Yes GI Disorders: Yes (GERD, IBS,) - Surgical History GI Surgery: Yes (Hernia Repair, A/P,Gastric bypass,cholecystectomy) - Immunization History Immunization Up to Date: No - Psycho Social/Smoking Cessation Hx Smoking History: Never smoked Have you smoked in the past 12 months: No If you are a former smoker, when did you quit?: 2007 Information on smoking cessation initiated: No Hx Alcohol Use: No Drug/Substance Use Hx: No Review of Systems - Review of Systems Musculoskeletal: Yes: Back Pain *Physical Exam - Vital Signs Last Vital Signs Temp Pulse Resp BP Pulse Ox 98.5 F 71 18 127/98 99 07/27/19 18:40 07/27/19 18:40 07/27/19 18:40 07/27/19 18:40 07/27/19 18:40 - Physical Exam 07/27/19 22:09 Lumbar spine skin color and temperature are normal. There is full nonpainful range of motion. 5 out of 5 strength in bilateral lower extremities. Straight leg raise test is negative bilaterally. Thighs and calves are soft and nontender. There are no gross sensory motor deficits. Neurovascularly intact. There is moderate bilateral paralumbar musculature spasm and tenderness. No midline tenderness. Medical Decision Making - Medical Decision Making 07/27/19 22:10 2 Percocet given in the emergency room patient is asking for 05/12/2025 prescription to go home with this will not be done by [place] Medrol Dosepak and Flexeril Discharge - Discharge Information Problems reviewed: Yes Clinical Impression/Diagnosis: Lumbar radiculopathy Clinical Impression/Diagnosis: (Ruled Out): Medication refill Condition: Stable Disposition: HOME - Admission No - Additional Discharge Information Prescriptions: Cyclobenzaprine HCl [Flexeril 10 mg] 10 mg PO HS PRN #10 tablet PRN Reason: Muscle Spasms Methylprednisolone [Medrol Dose Nigel] 4 mg PO ASDIR #21 tablet - Follow up/Referral Referrals: Mauro Jones MD, [facility] [Staff Physician] - - Patient Discharge Instructions Additional Instructions: He may follow-up with neurosurgery in 1 to 2 days for further evaluation and treatment options and return to the emergency room should symptoms worsen. You may try the Medrol Dosepak and Flexeril as directed to help with your pain and manage her symptoms while you are away from your pain management doctor and out of state. - Post Discharge Activity
== END 2019-07-27 22:26 | disposition home or self-care (01) ==
LOC: JERFT 18:19
DX: M54.16 Radiculopathy, lumbar region (principal); I48.91 Unspecified atrial fibrillation; I50.9 Heart failure, unspecified; Z79.01 Long term (current) use of anticoagulants; Z87.19 Personal history of other diseases of the digestive system; Z98.84 Bariatric surgery status; Z90.49 Acquired absence of other specified parts of digestive tract; Z88.0 Allergy status to penicillin
CPT/HCPCS: 99281-25

== ENCOUNTER 2019-08-10 18:33 | Emergency (ER) | payer OTHER ==
[2019-08-10 18:44] VITALS: BMI 32.1
--- NOTE | 2019-08-10 18:51 | PDOC ---
Rapid Medical Evaluation Chief Complaint: Injury Time Seen by Provider: 08/10/19 18:49 Medical Evaluation: Allergies Allergy/AdvReac Type Severity Reaction Status Date / Time Penicillins Allergy Verified 07/27/19 18:39 Vital Signs Temp Pulse Resp BP Pulse Ox 98.4 F 78 16 91/58 L 98 08/10/19 18:40 08/10/19 18:40 08/10/19 18:40 08/10/19 18:40 08/10/19 18:40 08/10/19 18:50 Pt c/o: fell again on rt side landing on recent rt rib fx and now with rt hand injury, pt on eliquis pt on brief exam: noted ecchymosis and edema to dorsal aspect of rt hand, tender over 7-10th ribs with mild ecchymosis to area, no crep , lcta Pt ordered for: hand and rib xray, cbc pt to proceed to the ED Discharge Disposition - Diagnosis Fall - Discharge Dispostion Condition at time of disposition: Stable - Referrals - Patient Instructions - Post Discharge Activity
[2019-08-10] MEDS ORDERED: LIDOCAINE 5% TOPICAL PATCH TP ONE (20:46)
[2019-08-10] MEDS ORDERED: ACETAMINOPHEN 325 MG TABLET (FP) PO ONE (20:46)
[2019-08-10] MEDS ORDERED: ACETAMINOPHEN 325 MG TABLET (FP) ONE (20:52)
[2019-08-10] MEDS ORDERED: LIDOCAINE 5% TOPICAL PATCH ONE (20:53)
[2019-08-10] MEDS ORDERED: oxyCODONE HCL 5 MG TABLET PO ONE ×2 (20:57)
[2019-08-10] MEDS ORDERED: oxyCODONE HCL 5 MG TABLET ONE (20:59)
--- NOTE | 2019-08-10 21:18 | PDOC ---
History of Present Illness - General Chief Complaint: Injury Stated Complaint: FALL Time Seen by Provider: 08/10/19 18:49 - History of Present Illness Initial Comments: 08/10/19 22:23 64 yo F PMH bipolar disorder, R rib fractures after mechanical fall 2 months ago , presenting after fall today with R rib pain and R hand pain. States that she was walking and tripped over her cat. No head trauma, no LOC. However, she feels pleuritic pain with deep breaths as well as pain and swelling on the dorsum of her R hand. Denies CP, SOB, lightheadedness, dizziness, CHEN, N/V. Notes that she is from [place], only here in the area because her mother . Asks for a one week dose of her psychiatric medication until she can get back to her [place] PCP. Past History - Past Medical History Allergies/Adverse Reactions: Allergies Allergy/AdvReac Type Severity Reaction Status Date / Time Penicillins Allergy Verified 08/10/19 20:18 Home Medications: Ambulatory Orders Alendronate Sodium [Fosamax] 1 tab PO WEEKLY 06/23/19 Apixaban [Eliquis] 5 mg PO BID 06/23/19 Dicyclomine HCl 10 mg PO BID 06/23/19 Furosemide 20 mg PO DAILY 06/23/19 Gabapentin 300 mg PO Q8H 06/23/19 Lubiprostone [Amitiza] 24 mg PO BID 06/23/19 Metoprolol Tartrate 25 mg PO BID 06/23/19 Miscellaneous Medical Supply [Outpatient Order] 1 each ASDIR #1 misc Oxycodone HCl/Acetaminophen [Percocet 10-325 mg Tablet] 1 each PO QID PRN Pantoprazole Sodium 40 mg PO DAILY 06/23/19 Potassium Chloride 10 meq PO DAILY 06/23/19 Promethazine HCl 25 mg PO BID PRN 06/23/19 Solifenacin Succinate [Vesicare -] 5 mg PO DAILY 06/23/19 Zolpidem Tartrate 10 mg PO HS PRN 06/23/19 Cyclobenzaprine HCl [Flexeril 10 mg] 10 mg PO HS PRN #10 tablet 07/27/19 Methylprednisolone [Medrol Dose Nigel] 4 mg PO ASDIR #21 tablet 07/27/19 Lidocaine 5% Patch [Lidoderm Patch -] 1 patch TP DAILY PRN #7 patch 08/10/19 Lurasidone HCl [Latuda] 80 mg PO DAILY #7 tablet 08/10/19 Vortioxetine Hydrobromide [Trintellix] 20 mg PO DAILY #7 tablet 08/10/19 oxyCODONE HCL [Roxicodone -] 10 mg PO Q6H PRN #12 tablet MDD 4 08/10/19 Cardiac Disorders: Yes (Afib) COPD: No CHF: Yes GI Disorders: Yes (GERD, IBS,) - Surgical History GI Surgery: Yes (Hernia Repair, A/P,Gastric bypass,cholecystectomy) - Immunization History Immunization Up to Date: No - Psycho Social/Smoking Cessation Hx Smoking History: Never smoked Have you smoked in the past 12 months: No If you are a former smoker, when did you quit?: 2007 Information on smoking cessation initiated: No Hx Alcohol Use: No Drug/Substance Use Hx: No Review of Systems - Review of Systems Comments:: 08/10/19 22:25 GENERAL/CONSTITUTIONAL: No fever or chills. No weakness. HEAD, EYES, EARS, NOSE AND THROAT: No change in vision. No ear pain or discharge. No sore throat. CARDIOVASCULAR: No chest pain or shortness of breath. RESPIRATORY: No cough, wheezing, or hemoptysis. GASTROINTESTINAL: No nausea, vomiting, diarrhea or constipation. GENITOURINARY: No dysuria, frequency, or change in urination. MUSCULOSKELETAL: No joint or muscle swelling or pain. No neck or back pain. SKIN: No rash NEUROLOGIC: No headache, vertigo, loss of consciousness, or change in strength/ sensation. ENDOCRINE: No increased thirst. No abnormal weight change. HEMATOLOGIC/LYMPHATIC: No anemia, easy bleeding, or history of blood clots. ALLERGIC/IMMUNOLOGIC: No hives or skin allergy *Physical Exam - Vital Signs Last Vital Signs Temp Pulse Resp BP Pulse Ox 98.4 F 78 16 91/58 L 98 08/10/19 18:40 08/10/19 18:40 08/10/19 18:40 08/10/19 18:40 08/10/19 18:40 - Physical Exam 08/10/19 22:30 Gen: well-developed, well-nourished, NAD Neuro: AAOX4, CN II-XII intact, FTN intact, EOMI, PERRLA, 5/5 strength, SILT HEENT: atraumatic, normocephalic, dry mucous membranes Neck: trachea midline, supple CV: regular rate, regular rhythm, no murmurs, rubs, or gallops. Ribs: tenderness around R 7-10th ribs Pulm: CTA b/l, poor inspiratory effort Abd: soft, non-distended, non-tender MSK: full ROM, intact pulses Extr: edema of R dorsal hand with tenderness Skin: warm, dry Procedures - Splinting Splint Location: Right: Finger, Forearm Pre-Proc Neuro Vasc Exam: normal Hand-Made Type: orthoglass Splint Type: Yes: Ulnar Post-Proc Neuro Vasc Exam: unchanged from pre-exam Sling: No Complications: No ED Treatment Course - RADIOLOGY Radiology Studies Ordered: Category Date Time Status RIBS BILATERAL [RAD] Stat Radiology 08/10/19 20:14 Taken - Medications Given in the ED: ED Medications Discontinued Medications Generic Name Dose Route Start Last Admin Trade Name Freq PRN Reason Stop Dose Admin Acetaminophen 1,000 mg 08/10/19 20:46 08/10/19 21:02 Tylenol - PO 08/10/19 20:47 1,000 mg ONCE ONE Administration Lidocaine 1 patch 08/10/19 20:46 08/10/19 21:01 Lidoderm Patch - TP 08/10/19 20:47 1 patch ONCE ONE Administration Oxycodone HCl 10 mg 08/10/19 20:57 08/10/19 21:02 Roxicodone - PO 08/10/19 20:58 10 mg ONCE ONE Administration Oxycodone HCl 10 mg 08/10/19 20:57 08/10/19 21:02 Roxicodone - PO 08/10/19 20:58 Not Given ONCE ONE Medical Decision Making - Medical Decision Making 08/10/19 22:27 Concern for rib fracture and R hand fracture. - CXR with R 7th and 8th rib fractures - Hand X-ray with R boxer's fracture Placed in ulnar gutter. Will dc for outpatient ortho follow-up. Sent Latuda and Trilentil for patient. Discharge - Discharge Information Problems reviewed: Yes Clinical Impression/Diagnosis: Fall Qualifiers: Encounter type: initial encounter Qualified Code(s): W19.XXXA - Unspecified fall, initial encounter Fracture of fifth metacarpal bone of right hand Qualifiers: Encounter type: initial encounter Fracture type: closed Metacarpal location: neck Fracture alignment: nondisplaced Qualified Code(s): S62.366A - Nondisplaced fracture of neck of fifth metacarpal bone, right hand, initial encounter for closed fracture Chest wall contusion Qualifiers: Encounter type: initial encounter Laterality: right Qualified Code(s): S20.211A - Contusion of right front wall of thorax, initial encounter Right rib fracture Qualifiers: Encounter type: sequela Rib fracture type: single rib Fracture type: closed Qualified Code(s): S22.31XS - Fracture of one rib, right side, sequela Condition: Stable Disposition: HOME - Additional Discharge Information Prescriptions: Lidocaine 5% Patch [Lidoderm Patch -] 1 patch TP DAILY PRN #7 patch PRN Reason: Pain Lurasidone HCl [Latuda] 80 mg PO DAILY #7 tablet oxyCODONE HCL [Roxicodone -] 10 mg PO Q6H PRN #12 tablet MDD 4 PRN Reason: Severe Pain Vortioxetine Hydrobromide [Trintellix] 20 mg PO DAILY #7 tablet - Follow up/Referral Referrals: [facility] [place] [facility] [place] [Provider Group] [facility] [Provider Group] Walter Crawford DO [Staff Physician] - ON STAFF,NOT [Primary Care Provider] - Eduardo Sifuentes DO [Staff Physician] - - Patient Discharge Instructions Patient Printed Discharge Instructions: DI for Rib Contusion, DI for Boxer's Fracture, How to Prevent Falls Additional Instructions: You most likely have musculoskeletal strain/contusion of your right chest wall with the old rib fracture you should use the spirometer at home and take deep breaths every hour to prevent respiratory failure/infection Avoid heavy lifting or strenuous activity to minimize further injury This should heal over the next 3-5 days. you also have a boxer's fracture of your right hand this is immobilizaed in the splint, you n eed to follow up with orthopedics in 1 week. RICE rest ice elevate the affected area Rest, Ice (20 minutes at a time, 3 times a day), Compression (MARGOTH wrap or splint ), Elevation (above the heart). Apply ice to the area for 10 minutes every 2 hours for the first 2 days after the injury to reduce swelling. continue with range of motion exercises, as this will facilitate the healing process; avoid being bed bound and immobile. If you have any worsening of symptoms, including severe pain/swelling/redness/ numbness/changes in sensation/weakness/paralysis or any other concerns please return to the Emergency Department immediately. You were given a copy of the results from any tests performed today in the Emergency Department which have results available. Show these to your doctor(s). Some of the tests we sent may not have results yet so please call or have your doctor call the Emergency Department to follow up on all results. Please continue taking your home medications as directed. Do not use alcohol when taking any medication ( especially antibiotics, tylenol or other pain medication) unless you check with the doctor or pharmacist. -Oxycodone is a strong narcotic, take 4 times a day as needed for pain control; this may cause sleepiness, do not drive or operate machinery or take with alcohol. -topical lidoderm patch to the area affected, 12 hours on and 12 hours off.. -May take tylenol 650 to 975 mg every 6 hours as needed for mild to moderate pain, available over the counter. This does not require narcotics, as it will precipitate injuries and falls. Please follow up with your primary doctor(s) and oncology account specialist within the next 1 week, but seek medical care sooner if your symptoms persist or worsen. Please call as soon as possible for an appointment. If you cannot follow up with your doctor please return to the Emergency Department for any urgent issues. Follow up with your primary care physician in 1 week if symptoms persist, or with orthopedics specialists if needed, referrals have been provided. FALL PREVENTION AT HOME WHAT YOU NEED TO KNOW There are many different factors that can increase your risk of falls. Falls can happen any time, but the majority of them occur in the home. Fall prevention includes ways to make your home and other areas safer. It also includes ways you can move more carefully to prevent a fall. Health conditions that cause changes in your blood pressure, vision, or muscle strength and coordination may increase your risk for falls. Medicines, including anesthesia, may increase your risk for falls if they make you dizzy, weak, or sleepy. FALL PREVENTION TIPS Stand or sit up slowly. This may help you keep your balance and prevent falls. Do not walk and talk at the same time. Concentrate on the task of walking and continue the conversation after you've reached a safe place. Wear shoes that fit well and have soles that results technician. Wear shoes both inside and outside. Use slippers with good results technician. Avoid shoes with high heels. Use assistive devices as directed. Your healthcare provider may suggest that you use a cane or walker to help you keep you balance. Be sure you have adequate lighting throughout your house. Keep paths clear. Remove books, shoes and other objects from walkways and stairs. Keep cords for telephones and lamps out of the way so you dont need to walk over them. Remove small rugs or secure them with double-sided tape. This will prevent you from tripping. Use a nightlight when getting out of bed at night. Stay active to maintain overall strength and endurance. Know your limitations. If there is a task you can not complete with ease, do not risk a fall by trying to complete it. Call 911 or have someone else call if: You have fallen and are unconscious You have fallen and cannot move part of your body Contact your healthcare provider if: You have fallen and have pain or a headache You have questions or concerns about your condition or care. - Post Discharge Activity
--- NOTE | 2019-08-10 21:19 | PDOC ---
Attending Attestation - Resident Resident Name: Aundrea Tadeo - ED Attending Attestation I have performed the following: I have examined & evaluated the patient, The case was reviewed & discussed with the resident, I agree w/resident's findings & plan - HPI HPI: 08/10/19 21:19 64F w/ pmhx of CHF, Afib, DVT (2013, on Eliquis), spinal stenosis, IBS, degenerative disc disease, Mcgowan's esophagus presenting with trip and fall as her cat scuttled across the room. she braced her fall with her right hand, no head injury or LOC. c/o right hand pain and swelling, worse with movement also c/o right sided chest pain where she landed, where her prior rib fx were noted. worse with deep breathing and palpation/movement no other associated injuries. no prodromal sx. no fofana/dizziness, weakness/ paresthesias, AP, n/v. - Physicial Exam PE: 08/10/19 21:17 physical exam General: NAD, well appearing HEENT: NCAT, EOMI, PERRL Lungs: clear to auscultation, no respiratory distress CVS: RRR, no murmur Chest: right anterolateral TTP, no crepitus, no ecchymosis or discoloration. Abdomen: soft, no tenderness, nondistended Vascular: 2+ DP pulses symmetric and equal. Back: no midline tenderness, no stepoffs, FROM MSK: notable for soft compartments, Cap refill <2 sec. Proximal and distal strength 5/5, hide mill worker strength 5/5 - equal and symmetric. Plantar flexion and dorsiflexion 5/5. FROM. Sensation grossly intact to light touch. Neuro: alert, no focal neurologic deficits Skin: color normal color, warm and well perfused. Cap refill <2 sec. Upper Extremity: shoulder abduction/adduction/flexion/extension and prox strength 5/5 actively against resistance. 5/5 shoulder shrug strength. deltoid sensation intact; sensation grossly intact in median/radial/ulnar distribution. distal hide mill worker strength 5/5. 2+ radialis pulses bilaterally and symmetric. FDS And FDP intact in affected finger. +right dorsal hand/ulnar aspect TTP and swelling , +mild ecchymosis small bruising to right forearm, nontender. FROM at the elbow and shoulders and proximal joints. no scaphoid tenderness noted. ROM limited at the wrist 2/2 pain and swelling. 08/10/19 21:33 - Medical Decision Making 08/10/19 21:16 Vital Signs Temp Pulse Resp BP Pulse Ox 98.4 F 78 16 91/58 L 98 08/10/19 18:40 08/10/19 18:40 08/10/19 18:40 08/10/19 18:40 08/10/19 18:40 ddx. chest wall contusion, pulm contusion, fracture. ptx. effusion. fracture, boxer's fx, wrist fx. ulnar/distal radius fx. hand contusion Interpreted by ED Physician: CXR (2 view): no acute abnormality: no infiltrates , bones appear intact and structures normal alignment, cardiac silhouette within normal limits. no free air under diaphragm, no pneumothorax. right rib fx x2 seen, likely old and recent fx. Surgical clips seen in the abdomen. Right hand x-ray with possible boxer's fracture, fifth distal metacarpal fracture seen on PA and oblique views. splint in ulnar gutter, immobilization. pain control rx meds for bipolar to her pharmacy - trintillix and latuda - which her primary doctor had refused to provide, rx 1 week course to prevent flare and maintenance care.; pt has other agents; will not rx benzo, as that should be done with primary as well. rx oxycodone prn for severe pain. side effect profile reviewed, pt understands as she takes for her spinal stenosis and chronic pain. Pt to be discharged in stable condition. Patient made aware of clinical impression, treatment recommendations and disposition plan, return precautions discussed (including but not limited to new or persistent/worsening symptoms, pain, fevers, or signs of infection, chest pain, respiratory distress, inability to tolerate oral intake, dehydration, syncope, or neurologic changes) . Follow up with PMD and/or ortho specialist as recommended, follow up information provided, take medications as instructed for duration of time. continue with supportive care, avoid triggers and precipitants. All questions answered to patient's satisfaction and expressed understanding and comfort with this. At the time of discharge, the patient is alert, clinically improved, tolerating po and verbalizes understanding of instructions, satisfied with the care received and felt comfortable with the plan. Patient does not suffer from an acute life-threatening medical condition at this time and is safe for outpatient follow-up. 08/10/19 21:31 08/10/19 21:32 08/10/19 21:32 Discharge - Discharge Information Problems reviewed: Yes Clinical Impression/Diagnosis: Fall Qualifiers: Encounter type: initial encounter Qualified Code(s): W19.XXXA - Unspecified fall, initial encounter Fracture of fifth metacarpal bone of right hand Qualifiers: Encounter type: initial encounter Fracture type: closed Metacarpal location: neck Fracture alignment: nondisplaced Qualified Code(s): S62.366A - Nondisplaced fracture of neck of fifth metacarpal bone, right hand, initial encounter for closed fracture Chest wall contusion Qualifiers: Encounter type: initial encounter Laterality: right Qualified Code(s): S20.211A - Contusion of right front wall of thorax, initial encounter Right rib fracture Qualifiers: Encounter type: sequela Rib fracture type: single rib Fracture type: closed Qualified Code(s): S22.31XS - Fracture of one rib, right side, sequela Condition: Stable Disposition: HOME - Admission No - Additional Discharge Information Prescriptions: Lidocaine 5% Patch [Lidoderm Patch -] 1 patch TP DAILY PRN #7 patch PRN Reason: Pain Lurasidone HCl [Latuda] 80 mg PO DAILY #7 tablet oxyCODONE HCL [Roxicodone -] 10 mg PO Q6H PRN #12 tablet MDD 4 PRN Reason: Severe Pain Vortioxetine Hydrobromide [Trintellix] 20 mg PO DAILY #7 tablet - Follow up/Referral Referrals: ON STAFF,NOT [Primary Care Provider] - Walter Crawford DO [Staff Physician] - Eduardo Sifuentes DO [Staff Physician] - [facility] [place] [facility] [place] [Provider Group] [facility] [Provider Group] - Patient Discharge Instructions Patient Printed Discharge Instructions: DI for Rib Contusion, DI for Boxer's Fracture, How to Prevent Falls Additional Instructions: You most likely have musculoskeletal strain/contusion of your right chest wall with the old rib fracture you should use the spirometer at home and take deep breaths every hour to prevent respiratory failure/infection Avoid heavy lifting or strenuous activity to minimize further injury This should heal over the next 3-5 days. you also have a boxer's fracture of your right hand this is immobilizaed in the splint, you n eed to follow up with orthopedics in 1 week. RICE rest ice elevate the affected area Rest, Ice (20 minutes at a time, 3 times a day), Compression (MARGOTH wrap or splint ), Elevation (above the heart). Apply ice to the area for 10 minutes every 2 hours for the first 2 days after the injury to reduce swelling. continue with range of motion exercises, as this will facilitate the healing process; avoid being bed bound and immobile. If you have any worsening of symptoms, including severe pain/swelling/redness/ numbness/changes in sensation/weakness/paralysis or any other concerns please return to the Emergency Department immediately. You were given a copy of the results from any tests performed today in the Emergency Department which have results available. Show these to your doctor(s). Some of the tests we sent may not have results yet so please call or have your doctor call the Emergency Department to follow up on all results. Please continue taking your home medications as directed. Do not use alcohol when taking any medication ( especially antibiotics, tylenol or other pain medication) unless you check with the doctor or pharmacist. -Oxycodone is a strong narcotic, take 4 times a day as needed for pain control; this may cause sleepiness, do not drive or operate machinery or take with alcohol. -topical lidoderm patch to the area affected, 12 hours on and 12 hours off.. -May take tylenol 650 to 975 mg every 6 hours as needed for mild to moderate pain, available over the counter. This does not require narcotics, as it will precipitate injuries and falls. Please follow up with your primary doctor(s) and pricing specialist within the next 1 week, but seek medical care sooner if your symptoms persist or worsen. Please call as soon as possible for an appointment. If you cannot follow up with your doctor please return to the Emergency Department for any urgent issues. Follow up with your primary care physician in 1 week if symptoms persist, or with orthopedics specialists if needed, referrals have been provided. FALL PREVENTION AT HOME WHAT YOU NEED TO KNOW There are many different factors that can increase your risk of falls. Falls can happen any time, but the majority of them occur in the home. Fall prevention includes ways to make your home and other areas safer. It also includes ways you can move more carefully to prevent a fall. Health conditions that cause changes in your blood pressure, vision, or muscle strength and coordination may increase your risk for falls. Medicines, including anesthesia, may increase your risk for falls if they make you dizzy, weak, or sleepy. FALL PREVENTION TIPS Stand or sit up slowly. This may help you keep your balance and prevent falls. Do not walk and talk at the same time. Concentrate on the task of walking and continue the conversation after you've reached a safe place. Wear shoes that fit well and have soles that hide mill worker. Wear shoes both inside and outside. Use slippers with good hide mill worker. Avoid shoes with high heels. Use assistive devices as directed. Your healthcare provider may suggest that you use a cane or walker to help you keep you balance. Be sure you have adequate lighting throughout your house. Keep paths clear. Remove books, shoes and other objects from walkways and stairs. Keep cords for telephones and lamps out of the way so you dont need to walk over them. Remove small rugs or secure them with double-sided tape. This will prevent you from tripping. Use a nightlight when getting out of bed at night. Stay active to maintain overall strength and endurance. Know your limitations. If there is a task you can not complete with ease, do not risk a fall by trying to complete it. Call 911 or have someone else call if: You have fallen and are unconscious You have fallen and cannot move part of your body Contact your healthcare provider if: You have fallen and have pain or a headache You have questions or concerns about your condition or care. - Post Discharge Activity
[2019-08-10 22:30] VITALS: BP 112/77; PULSE 75; TEMP 98.1
== END 2019-08-10 22:29 | disposition home or self-care (01) ==
LOC: JER 18:33
PROC: 2W3CX1Z Immobilization of Right Lower Arm using Splint (ICD-10-PCS; principal; 2019-08-10)
DX: S62.366A Nondisplaced fracture of neck of fifth metacarpal bone, right hand, initial encounter for closed fracture (principal); W01.0XXA Fall on same level from slipping, tripping and stumbling without subsequent striking against object, initial encounter; Y93.89 Activity, other specified; Y92.89 Other specified places as the place of occurrence of the external cause; Z88.0 Allergy status to penicillin; K21.9 Gastro-esophageal reflux disease without esophagitis; I48.91 Unspecified atrial fibrillation; Z87.891 Personal history of nicotine dependence; I50.9 Heart failure, unspecified; Z98.84 Bariatric surgery status
CPT/HCPCS: 71111-TC-FY; 73130-TC-RT-FY; 99282-25

== ENCOUNTER 2019-09-25 00:21 | Emergency (ER) | payer OTHER ==
[2019-09-25 00:34] VITALS: TEMP 97.6; BMI 30.2
--- NOTE | 2019-09-25 00:43 | PDOC ---
History of Present Illness - General Chief Complaint: Shortness of Breath Stated Complaint: DIFF BREATHING/FALL Time Seen by Provider: 09/25/19 00:43 History Source: Patient Exam Limitations: No Limitations - History of Present Illness Initial Comments: 09/25/19 00:45 64yF w PMHx bipolar disorder, R rib fractures, a fib on eliquis, spinal stenosis presenting w dyspnea and moderate midsternal chest pain after tripping and falling forward on a heater. Did not take any pain meds. Denies head trauma , LOC, fever, cough, nausea/vomiting Past History - Past Medical History Allergies/Adverse Reactions: Allergies Allergy/AdvReac Type Severity Reaction Status Date / Time Penicillins Allergy Verified 09/25/19 00:33 Home Medications: Ambulatory Orders Alendronate Sodium [Fosamax] 1 tab PO WEEKLY 06/23/19 Apixaban [Eliquis] 5 mg PO BID 06/23/19 Dicyclomine HCl 10 mg PO BID 06/23/19 Furosemide 20 mg PO DAILY 06/23/19 Gabapentin 300 mg PO Q8H 06/23/19 Lubiprostone [Amitiza] 24 mg PO BID 06/23/19 Metoprolol Tartrate 25 mg PO BID 06/23/19 Miscellaneous Medical Supply [Outpatient Order] 1 each ASDIR #1 misc Oxycodone HCl/Acetaminophen [Percocet 10-325 mg Tablet] 1 each PO QID PRN Pantoprazole Sodium 40 mg PO DAILY 06/23/19 Potassium Chloride 10 meq PO DAILY 06/23/19 Promethazine HCl 25 mg PO BID PRN 06/23/19 Solifenacin Succinate [Vesicare -] 5 mg PO DAILY 06/23/19 Zolpidem Tartrate 10 mg PO HS PRN 06/23/19 Cyclobenzaprine HCl [Flexeril 10 mg] 10 mg PO HS PRN #10 tablet 07/27/19 Methylprednisolone [Medrol Dose Nigel] 4 mg PO ASDIR #21 tablet 07/27/19 Lidocaine 5% Patch [Lidoderm Patch -] 1 patch TP DAILY PRN #7 patch 08/10/19 Lurasidone HCl [Latuda] 80 mg PO DAILY #7 tablet 08/10/19 Vortioxetine Hydrobromide [Trintellix] 20 mg PO DAILY #7 tablet 08/10/19 oxyCODONE HCL [Roxicodone -] 10 mg PO Q6H PRN #12 tablet MDD 4 08/10/19 Cardiac Disorders: Yes (Afib) COPD: No CHF: Yes GI Disorders: Yes (GERD, IBS,) - Surgical History GI Surgery: Yes (Hernia Repair, A/P,Gastric bypass,cholecystectomy) - Immunization History Immunization Up to Date: No - Psycho Social/Smoking Cessation Hx Smoking History: Never smoked Have you smoked in the past 12 months: No If you are a former smoker, when did you quit?: 2007 Hx Alcohol Use: No Drug/Substance Use Hx: No Review of Systems - Review of Systems Constitutional: No: Chills, Fever HEENTM: No: Eye Pain, Nose Pain Respiratory: Yes: Shortness of Breath. No: Cough Cardiac (ROS): Yes: Chest Pain. No: Palpitations, Syncope ABD/GI: No: Abdominal Distended, Constipated, Diarrhea, Nausea, Vomiting : No: Burning, Dysuria Musculoskeletal: No: Back Pain, Joint Pain Integumentary: No: Bruising, Flushing Neurological: No: Headache, Seizure Psychiatric: No: Anxiety, Depression Endocrine: No: Intolerance to Cold, Intolerance to Heat Hematologic/Lymphatic: No: Anemia, Blood Clots *Physical Exam - Vital Signs Last Vital Signs Temp Pulse Resp BP Pulse Ox 97.6 F 74 24 H 102/69 100 09/25/19 00:27 09/25/19 00:27 09/25/19 00:27 09/25/19 00:27 09/25/19 00:27 - Physical Exam General Appearance: Yes: Nourished, Appropriately Dressed, Mild Distress HEENT: positive: EOMI, KRYSTLE, Normal Voice, Hearing Grossly Normal. negative: Scleral Icterus (R), Scleral Icterus (L) Neck: positive: Supple. negative: Tender, Rigid Respiratory/Chest: positive: Chest Tender (mild midsternal, no abrasion/ deformity), Lungs Clear, Normal Breath Sounds. negative: Respiratory Distress, Crackles, Rales, Rhonchi, Stridor, Wheezing Cardiovascular: positive: Regular Rhythm, Regular Rate, S1, S2. negative: Edema , Murmur Gastrointestinal/Abdominal: positive: Normal Bowel Sounds, Flat, Soft. negative : Tender, Organomegaly Extremity: positive: Normal Capillary Refill Integumentary: positive: Normal Color. negative: Dry Neurologic: positive: nonprofit financial controller II-XII NML intact, Fully Oriented, Alert, Normal Mood/ Affect, Normal Response, Motor Strength 5/5, Responsive. negative: Numbness, Sensory Deficit, Confused, Disoriented Heart Score/ECG Review - History History: Slightly suspicious - Electrocardiogram EKG: Normal - Age Age: >/= 65 - Risk Factors Risk Factors Heart Score: No Hx Hypercholesterolemia, No Hx Hypertension, No Hx Diabetes, No Smoking History, No Positive family hx of cardiac disease, No Hx Obesity Based on the list above the patient has:: No risk factors known - Troponin Troponin: </= normal limit - Score Heart Score - Total: 2 ED Treatment Course - LABORATORY CBC & Chemistry Diagram: 09/25/19 01:25 09/25/19 01:25 Medical Decision Making - Medical Decision Making 09/25/19 01:07 EKG - NSR, TWI V1-2, HR 72, QTc 442, new TWI V2 vs 2019 Head/chest/A/P CT - --- 64yF w PMHx bipolar disorder, R rib fractures, a fib on eliquis, spinal stenosis presenting w dyspnea and midsternal chest pain s/p mechanical fall Likely contusion vs costochondritis (tender to palpation) vs anxiety. Low concern for ACS (no cardiac risk factors, HEART 2) vs sternal fracture vs PNA ( no cough, clear lung bowman) Given tylenol Anticipate DC home - pending labs, CT Discharge - Discharge Information Problems reviewed: Yes Clinical Impression/Diagnosis: Chest pain Qualifiers: Chest pain type: unspecified Qualified Code(s): R07.9 - Chest pain, unspecified Condition: Good Disposition: HOME - Follow up/Referral - Patient Discharge Instructions - Post Discharge Activity
[2019-09-25] MEDS ORDERED: IBUPROFEN 600 MG TABLET (FP) PO ONE (00:56)
[2019-09-25] MEDS ORDERED: ACETAMINOPHEN 1000 MG/100 ML VIAL (NON FORMULARY) IVPB ONE (01:05)
--- NOTE | 2019-09-25 01:37 | PDOC ---
Documentation entered by Amanda Murcia SCRIBE, acting as scribe for Mehnaz Gomez DO. Mehnaz Gomez DO: This documentation has been prepared by the [employer] [facility], SCRIBE, under my direction and personally reviewed by me in its entirety. I confirm that the documentation accurately reflects all work, treatment, procedures, and medical decision making performed by me. Attending Attestation - Resident Resident Name: Mike Gooden - ED Attending Attestation I have performed the following: I have examined & evaluated the patient, The case was reviewed & discussed with the resident, I agree w/resident's findings & plan, Exceptions are as noted - HPI HPI: 09/25/19 01:00 Patient is a 64 year old female with a significant PMH of CHF, Afib, DVT (2013 , on Eliquis), spinal stenosis, IBS, degenerative disc disease, Mcgowan's esophagus who presents to the ED with dyspnea and midsternal chest pain s/p fall.Patient states she tripped and fell over an electric heater and hit her chest on it. Denies LOC. Denies any head trauma. - Physicial Exam PE: 09/25/19 00:53 See residents PE. - Medical Decision Making 09/25/19 01:37 64-year-old female currently on Eliquis status post fall onto a heater striking her chest complaining of chest pain shortness of breath Plan for CT head due to anticoagulation CT scan of the chest abdomen and pelvis with IV contrast EKG Labs Case signed out to night attending pending results
[2019-09-25 01:48] LABS: BASO % 0.8 % (0-2.0); EOS % 2.1 % (0-4.5); HEMATOCRIT 38.4 % (32.4-45.2); HEMOGLOBIN 12.7 GM/dL (10.7-15.3); LYMPH % 15.1 % (8-40); MCH 29.9 pg (25.7-33.7); MCHC 33.1 g/dl (32.0-36.0); MEAN CELL VOLUME 90.2 fl (80-96); MEAN PLT VOLUME 10.1 fl (7.5-11.1); MONO % 7.9 % (3.8-10.2); NEUT % 74.1 % (42.8-82.8); PLATELET COUNT 243 K/MM3 (134-434); RBC 4.26 M/mm3 (3.60-5.2); RDW 15.7 % (11.6-15.6)
[2019-09-25] MEDS ORDERED: ACETAMINOPHEN INJECTION 100 ML IVPB ONE (01:50)
[2019-09-25 02:10] LABS: INR 1.05 (0.83-1.09); PROTHROMBIN TIME (PATIENT) 12.4 SEC (9.7-13.0)
[2019-09-25 02:14] LABS: ALBUMIN 3.5 g/dl (3.4-5.0); BILIRUBIN,TOTAL 0.2 mg/dL (0.2-1); BLOOD UREA NITROGEN 8.5 mg/dL (7-18); CALCIUM 9.1 mg/dL (8.5-10.1); CREATININE 0.8 mg/dL (0.55-1.3); POTASSIUM 4.5 mmol/L (3.5-5.1); TOT PROT 6.9 g/dl (6.4-8.2)
--- NOTE | 2019-09-25 02:59 | PDOC ---
*Physical Exam - Vital Signs Last Vital Signs Temp Pulse Resp BP Pulse Ox 97.6 F 74 24 H 102/69 100 09/25/19 00:27 09/25/19 00:27 09/25/19 00:27 09/25/19 00:27 09/25/19 00:27 <Beth Bañuelos - Last Filed: 09/25/19 05:08> - Vital Signs Last Vital Signs Temp Pulse Resp BP Pulse Ox 97.6 F 74 24 H 102/69 100 09/25/19 00:27 09/25/19 00:27 09/25/19 00:27 09/25/19 00:27 09/25/19 00:27 <Rae Olivares - Last Filed: 09/25/19 05:27> ED Treatment Course - LABORATORY CBC & Chemistry Diagram: 09/25/19 01:25 09/25/19 01:25 - ADDITIONAL ORDERS Additional order review: Laboratory Results 09/25/19 09/25/19 09/25/19 01:25 01:25 01:25 PT with INR 12.40 INR 1.05 Sodium 138 Potassium 4.5 Chloride 105 Carbon Dioxide 28 Anion Gap 5 L BUN 8.5 Creatinine 0.8 Est GFR (CKD-EPI)AfAm 89.04 Est GFR (CKD-EPI)NonAf 76.83 Random Glucose 101 Calcium 9.1 Total Bilirubin 0.2 AST 27 ALT 31 Alkaline Phosphatase 85 Creatine Kinase 82 Troponin I < 0.02 Total Protein 6.9 Albumin 3.5 09/25/19 01:25 RBC 4.26 MCV 90.2 MCHC 33.1 RDW 15.7 H MPV 10.1 Neutrophils % 74.1 Lymphocytes % 15.1 D Monocytes % 7.9 Eosinophils % 2.1 Basophils % 0.8 - Medications Given in the ED: ED Medications Discontinued Medications Generic Name Dose Route Start Last Admin Trade Name Freq PRN Reason Stop Dose Admin Acetaminophen 1,000 mg 09/25/19 01:05 09/25/19 01:50 Ofirmev Injection - IVPB 09/25/19 01:06 1,000 mg ONCE ONE Administration Ibuprofen 600 mg 09/25/19 00:56 09/25/19 01:48 Motrin - PO 09/25/19 00:57 Not Given ONCE ONE Morphine Sulfate 2 mg 09/25/19 03:49 09/25/19 04:15 Morphine Injection - IVPUSH 09/25/19 03:50 2 mg ONCE ONE Administration Sodium Chloride 1,000 ml 09/25/19 03:49 09/25/19 04:15 Normal Saline - IV 09/25/19 03:50 1,000 ml ONCE ONE Administration <BañuelosBeth - Last Filed: 09/25/19 05:08> - LABORATORY CBC & Chemistry Diagram: 09/25/19 01:25 09/25/19 01:25 - ADDITIONAL ORDERS Additional order review: Laboratory Results 09/25/19 09/25/19 09/25/19 01:25 01:25 01:25 PT with INR 12.40 INR 1.05 Sodium 138 Potassium 4.5 Chloride 105 Carbon Dioxide 28 Anion Gap 5 L BUN 8.5 Creatinine 0.8 Est GFR (CKD-EPI)AfAm 89.04 Est GFR (CKD-EPI)NonAf 76.83 Random Glucose 101 Calcium 9.1 Total Bilirubin 0.2 AST 27 ALT 31 Alkaline Phosphatase 85 Creatine Kinase 82 Troponin I < 0.02 Total Protein 6.9 Albumin 3.5 09/25/19 01:25 RBC 4.26 MCV 90.2 MCHC 33.1 RDW 15.7 H MPV 10.1 Neutrophils % 74.1 Lymphocytes % 15.1 D Monocytes % 7.9 Eosinophils % 2.1 Basophils % 0.8 - Medications Given in the ED: ED Medications Discontinued Medications Generic Name Dose Route Start Last Admin Trade Name Nimco PRN Reason Stop Dose Admin Acetaminophen 1,000 mg 09/25/19 01:05 09/25/19 01:50 Ofirmev Injection - IVPB 09/25/19 01:06 1,000 mg ONCE ONE Administration Ibuprofen 600 mg 09/25/19 00:56 09/25/19 01:48 Motrin - PO 09/25/19 00:57 Not Given ONCE ONE <Rae Olivares - Last Filed: 09/25/19 05:27> Medical Decision Making - Medical Decision Making 09/25/19 05:08 Patient Name: APRIL STAPLETON THIS IS A PRELIMINARY REPORT FROM [facility] DATE OF SERVICE: 2019-09-25 02:37:33 IMAGES: [id number] EXAM: HEAD CT WITHOUT CONTRAST HISTORY: Trauma COMPARISON: None. FINDINGS: The ventricular system is midline and nondilated. The sulcal pattern is normal for the patient's age. There is no bleed, mass, extra-axial fluid collection or mass effect. No skull fracture or skull lesion is identified. The visualized paranasal sinuses and mastoid air cells are clear other than a tiny right maxillary sinus retention cyst or polyp. IMPRESSION: No acute pathology. 09/25/19 05:08 Patient Name: APRIL STAPLETON THIS IS A PRELIMINARY REPORT FROM [facility] DATE OF SERVICE: 2019-09-25 02:43:51 IMAGES: [id number] EXAM: CT chest, abdomen and pelvis with contrast HISTORY: Trauma COMPARISON: None. FINDINGS: CT chest:There is no aortic laceration or mediastinal hematoma. There is no significant mediastinal or hilar adenopathy. The heart is mildly enlarged. The trachea and bronchi are patent. There is no pleural or pericardial effusion. The lungs are clear. No pneumothorax. Bilateral breast implants are noted. Multiple subacute right rib fractures are noted with callus formation. The ninth rib is fractured in 2 locations. No definite acute fractures. CT abdomen and pelvis: Status post cholecystectomy with minimal biliary duct dilation. Normal pancreas, spleen, adrenal glands and kidneys. Status post gastric bypass without bowel obstruction or inflammation. There is no aortic aneurysm. There is no significant retroperitoneal lymphadenopathy. No retroperitoneal hematoma. The pelvic small and large bowel are normal. There is no evidence of appendicitis. The uterus and adnexal structures are notable only for small fibroids. Urinary bladder is unremarkable. There is no pelvic free fluid. No discrete pelvic lymphadenopathy is identified. Left hip prosthesis is noted. IMPRESSION: Multiple subacute right rib fractures with callus formation, but no pneumothorax or liver injury. <Beth Bañuelos - Last Filed: 09/25/19 05:08> - Medical Decision Making 09/25/19 02:[address] Gooden, 64yF w PMHx bipolar disorder, R rib fractures, a fib on eliquis, spinal stenosis presenting w dyspnea and moderate midsternal chest pain after tripping and falling forward on a heater. Did not take any pain meds. Denies head trauma , LOC, fever, cough, nausea/vomiting labs wnl pending CT of head, chest and ap. 09/25/19 04:37 CT head: The ventricular system is midline and nondilated. The sulcal pattern is normal for the patient's age. There is no bleed, mass, extra-axial fluid collection or mass effect. No skull fracture or skull lesion is identified. The visualized paranasal sinuses and mastoid air cells are clear other than a tiny right maxillary sinus retention cyst or polyp. 09/25/19 05:10 CT chest:There is no aortic laceration or mediastinal hematoma. There is no significant mediastinal or hilar adenopathy. The heart is mildly enlarged. The trachea and bronchi are patent. There is no pleural or pericardial effusion. The lungs are clear. No pneumothorax. Bilateral breast implants are noted. Multiple subacute right rib fractures are noted with callus formation. The ninth rib is fractured in 2 locations. No definite acute fractures. -spoke to radiogist Mihir to clarify number of rib fractures to which he replied "multiple" and stated that fractures are old, callus formation cannot result in less than 24h. pt is saturating well, no tachypnea. will dc home. given return precautions 09/25/19 05:26 <Rae Olivares - Last Filed: 09/25/19 05:27> Discharge <Beth Bañuelos - Last Filed: 09/25/19 05:08> - Discharge Information Problems reviewed: Yes <Rae Olivares - Last Filed: 09/25/19 05:27> - Discharge Information Clinical Impression/Diagnosis: Chest pain Qualifiers: Chest pain type: unspecified Qualified Code(s): R07.9 - Chest pain, unspecified Fall Qualifiers: Encounter type: initial encounter Qualified Code(s): W19.XXXA - Unspecified fall, initial encounter Rib fractures Qualifiers: Encounter type: sequela Rib fracture type: multiple ribs Fracture type: closed Laterality: unspecified laterality Qualified Code(s): S22.49XS - Multiple fractures of ribs, unspecified side, sequela Condition: Good Disposition: HOME - Additional Discharge Information Prescriptions: Methocarbamol [Robaxin -] 500 mg PO TID #21 tablet - Patient Discharge Instructions Additional Instructions: You have old rib fractures, no new fractures. A prescription for a muscle relaxant was sent to your pharmacy, take as directed. Please follow up with your doctor this week. Come back to the emergency room if you continue to have worsening pain, cannot breathe or if any new or concerning symptom develops. Thank you
[2019-09-25] MEDS ORDERED: SODIUM CHLORIDE 0.9% 500 ML INFUS.BAG IV ONE (03:49)
[2019-09-25] MEDS ORDERED: morphine CARPU-JECT 2 MG/1 ML DISP.SYRIN IVPUSH ONE (03:49)
[2019-09-25] MEDS ORDERED: MORPHINE SULFATE 2 MG/ML VIAL ONE (04:04)
[2019-09-25] MEDS ORDERED: METHOCARBAMOL 500 MG TABLET PO ONE (05:21)
[2019-09-25] MEDS ORDERED: METHOCARBAMOL 500 MG TABLET ONE (05:43)
[2019-09-25 06:02] VITALS: BP 131/80; PULSE 82
--- NOTE | 2019-09-26 10:16 | EKG ---
Test Reason : Blood Pressure : / mmHG Vent. Rate : 072 BPM Atrial Rate : 072 BPM P-R Int : 138 ms QRS Dur : 086 ms QT Int : 404 ms P-R-T Axes : 042 031 015 degrees QTc Int : 442 ms NORMAL SINUS RHYTHM NORMAL ECG WHEN COMPARED WITH ECG OF 23-JUN-2019 08:27, FUSION COMPLEXES ARE NO LONGER PRESENT PREMATURE VENTRICULAR COMPLEXES ARE NO LONGER PRESENT Confirmed by Yousuf Wilson ([id number]) on 09/26/2019 10:15:53 AM Referred By: Confirmed By:Yousuf Wilson
== END 2019-09-25 05:50 | disposition home or self-care (01) ==
LOC: JER 00:21
PROC: 3E033NZ Introduction of Analgesics, Hypnotics, Sedatives into Peripheral Vein, Percutaneous Approach (ICD-10-PCS; principal; 2019-09-25)
DX: S22.32XA Fracture of one rib, left side, initial encounter for closed fracture (principal); W01.198A Fall on same level from slipping, tripping and stumbling with subsequent striking against other object, initial encounter; Y93.89 Activity, other specified; Y92.89 Other specified places as the place of occurrence of the external cause; Y99.8 Other external cause status; I48.91 Unspecified atrial fibrillation; Z79.01 Long term (current) use of anticoagulants; Z86.718 Personal history of other venous thrombosis and embolism; M48.00 Spinal stenosis, site unspecified; F31.9 Bipolar disorder, unspecified; Z86.79 Personal history of other diseases of the circulatory system; Z88.0 Allergy status to penicillin
CPT/HCPCS: 36415; 70450-TC; 71260-TC; 74177-TC; 80053; 82550; 84484; 85025; 85610; 93005; 93010; 96374; 96375; 99285-25; J0131; Q9967